=== PATIENT | female | born 1960 | race African-American/Black ===

== ENCOUNTER 2022-03-18 11:34 | Outpatient (CLI) | payer OTHER | END 2022-03-18 11:35 | disposition home or self-care (01) | LOC: CSHLAB 11:34 | PROVIDERS: ATTEND Internal Medicine Gastroenterology | DX: Z20.822 Contact with and (suspected) exposure to COVID-19 (principal); R10.9 Unspecified abdominal pain; Z53.9 Procedure and treatment not carried out, unspecified reason ==

== ENCOUNTER 2022-06-14 15:20 | Emergency (ER) | payer OTHER ==
[2022-06-14] MEDS ORDERED: Acetaminophen 500 MG TAB ONE (16:00)
== END 2022-06-14 16:25 | disposition home or self-care (01) ==
LOC: CSHERS 15:20
DX: B34.9 Viral infection, unspecified (principal); Z20.822 Contact with and (suspected) exposure to COVID-19
CPT/HCPCS: 99284; U0003; U0005